=== PATIENT | female | born 1955 | race Caucasian/White ===

== ENCOUNTER → 2019-07-14 14:44 | Outpatient (CLI) | payer OTHER, SELFPAY ==
--- NOTE | ~2019-07-14 | MR_ITS ---
EXAMINATION: MR lumbar spine wo con DATE: 07/14/2019 15:24 INDICATION: Low back pain. TECHNIQUE: Magnetic resonance imaging (MRI) of the lumbar spine was performed without intravenous con trast. Sequences included sagittal T2-weighted FSE, sagittal T2-weighted FS FSE, sagittal T1-weighted FSE, and axial T2-weighted FSE. COMPARISON: Lumbar spine radiographs 11/05/2018 FINDINGS: There is 12 degrees dextroscoliosis of lumbar spine. There are Schmorl's nodes at multiple levels. There is a hemangioma in L1 vertebral body. There is mildly decreased disc height at L1-L2 an d severely decreased disc height at L4-L5. The distal spinal cord signal intensity is normal. The con us medullaris is at L1. There are cysts in the kidneys measuring up to 2.5 cm on the right. The follo wing disc levels are specifically discussed: L1-L2: The disc does not extend beyond the endplate margin. There is mild bilateral facet joint osteo arthritis. There is no neural foraminal stenosis. There is no central canal stenosis. L2-L3: There is a right foraminal protrusion. There is mild bilateral facet joint osteoarthritis. The re is mild right neural foraminal stenosis. There is no central canal stenosis. L3-L4: The disc is bulging. There is mild right and moderate left facet joint osteoarthritis. There i s mild bilateral neural foraminal stenosis. There is mild central canal stenosis. L4-L5: The disc is bulging and has an annular fissure. There is severe bilateral facet joint osteoart hritis. There is mild bilateral neural foraminal stenosis. There is mild central canal stenosis. L5-S1: The disc is bulging and has an annular fissure. There is severe right and moderate left facet joint osteoarthritis. There is mild bilateral neural foraminal stenosis. There is mild central canal stenosis. IMPRESSION: 1. Severe lumbar spondylosis. 2. Lumbar dextroscoliosis. Reviewed, dictated and finalized at location A.
== END ==
PROVIDERS: PCP Family Medicine Adolescent Medicine; Visit Provider Physician Assistant
DX: M47.816 Spondylosis without myelopathy or radiculopathy, lumbar region (principal); M41.9 Scoliosis, unspecified
CPT/HCPCS: 72148

== ENCOUNTER 2020-06-24 11:18 | Emergency (ER) | payer OTHER, SELFPAY ==
--- NOTE | ~2020-06-24 | XR_ITS ---
EXAMINATION: XR knee LT min 4V DATE: 06/24/2020 12:15 INDICATION: Medial left knee pain post fall TECHNIQUE: Anteroposterior, 2 oblique and crosstable lateral views of the left knee were obtained COMPARISON: None. FINDINGS: Alignment is normal. No fracture. No joint effusion/layering lipohemarthrosis. Joint spaces appear r elatively preserved but can be underestimated on nonweightbearing imaging. There are small marginal o steophytes in all 3 compartments of the left knee consistent with at least mild osteoarthritis. Tiny enthesophyte at the patellar insertion of the distal quadriceps tendon. Soft tissues are unremarkable . IMPRESSION: 1. No left knee joint effusion or acute osseous abnormality. 2. At least mild tricompartmental osteoarthritis of the left knee. Reviewed, dictated and finalized at location A. TATION MECHANIC
--- NOTE | ~2020-06-24 | XR_ITS ---
EXAMINATION: XR hand LT min 3V DATE: 06/24/2020 12:13 INDICATION: Pain at the third-fifth metacarpals of the left hand post fall TECHNIQUE: Posteroanterior, oblique and lateral views of the left hand were obtained. COMPARISON: None. FINDINGS: Intra-articular fracture at the palmar/radial aspect of the base of the fifth metacarpal with 1-2 mm palmar/radial displacement. No other fractures identified. Alignment is otherwise normal. Mild polyar ticular osteoarthritis at the first carpometacarpal and multiple predominantly distal interphalangeal joints. IMPRESSION: 1. Small mildly displaced intra-articular fracture at the palmar/radial base of the fifth metacarpal. Reviewed, dictated and finalized at location A. PLAYER
--- NOTE | ~2020-06-24 | XR_ITS ---
XR shoulder LT min 2V DATE: 06/24/2020 12:13 INDICATION: Fall last evening. Pain and limited range of motion TECHNIQUE: 4 views COMPARISON: 05/30/2008 left shoulder FINDINGS: Incidentally noted is diffuse idiopathic skeletal hyperostosis of the thoracic spine. No fracture, dislocation, periosteal reaction or bone destruction or abnormal soft tissue calcificati on of the left shoulder. Normal alignment at the acromioclavicular and glenohumeral joints. IMPRESSION: No fracture or dislocation of left shoulder Diffuse idiopathic skeletal hyperostosis of the thoracic spine Reviewed, dictated and finalized at location A. TER OPERATOR
--- NOTE | ~2020-06-24 | XR_ITS ---
EXAMINATION: XR knee RT min 4V DATE: 06/24/2020 12:15 INDICATION: Lateral right knee pain post fall TECHNIQUE: Anteroposterior, 2 oblique and crosstable lateral views of the right knee were obtained COMPARISON: None. FINDINGS: Alignment is normal. No fracture. No joint effusion/layering lipohemarthrosis. At least mild joint s pace narrowing in the medial and patellofemoral compartments although severity of joint space narrowi ng can be underestimated on nonweightbearing imaging. Moderate-sized marginal osteophytes in all 3 co mpartments of the knee. Small enthesophyte at the proximal pole of the patella. Soft tissues are unre markable. IMPRESSION: 1. Right knee joint effusion or acute osseous abnormality. 2. At least mild tricompartmental osteoarthritis at the right knee which appears slightly more severe than the contralateral left knee. Reviewed, dictated and finalized at location A. O OPERATOR IMPRESSION: 1. Right knee joint effusion or acute osseous abnormality. 2. At least mild tricompartmental osteoarthritis at the right knee which appear s slightly more severe than the contralateral left knee.
[2020-06-24 11:27] VITALS: BP 219/110; PULSE 85; RESP 16; TEMP 36.7; O2SAT 100
[2020-06-24 11:33] VITALS: BP 219/110; PULSE 85; RESP 16; TEMP 36.7; O2SAT 100
--- NOTE | 2020-06-24 11:43 | ED.UPPEXIN ---
HPI - Extremity Injury (Upper) General Chief Complaint: Fall Stated Complaint: fall/lt hand/shoulder and bilateral knees Time Seen by Provider: 06/24/20 11:33 Source: patient and RN notes reviewed Mode of arrival: ambulatory Limitations: no limitations History of Present Illness HPI narrative: Patient presents today complaining of pain to the left arm and bilateral knees status post fall last night in the [place] [employer] parking lot and [place]. States she slipped on the ice in the parking lot and fell onto her hands and knees. Denies numbness or tingling in the extremities. She is not up-to-date on her tetanus vaccine. Reports she is pain-free at rest, but her pain increases to 5/10 with movement. She has been using ice and heat as well as Advil with mild relief. MD complaint: injury to: left and arm Related Data Home Medications Medication Instructions Recorded Confirmed bupropion HCl mg PO 06/24/20 fenofibrate mg 06/24/20 glimepiride mg 06/24/20 levothyroxine [Synthroid] 06/24/20 lisinopril 06/24/20 venlafaxine mg PO 06/24/20 Allergies Allergy/AdvReac Type Severity Reaction Status Date / Time No Known Allergies Allergy Mild Verified 03/09/14 14:58 Review of Systems Review of Systems: Narrative: CONSTITUTIONAL: Denies body aches, fever, chills, or sweats. EYES: Denies visual changes, redness, or discharge. ENT: Denies rhinorrhea, congestion, sore throat, or otalgia. CARDIOVASCULAR: Denies chest pain, palpitations, or edema. RESPIRATORY: Denies cough or dyspnea. GASTROINTESTINAL: Denies abdominal pain, nausea, vomiting, or diarrhea. GENITOURINARY: Denies dysuria or hematuria. SKIN: Denies rash, itching, or wounds. MUSCULOSKELETAL: Denies back pain. + Left shoulder and hand pain, bilateral knee pain NEUROLOGIC: Denies headache, numbness, tingling, or weakness. PSYCH: Denies depression or anxiety. [facility] Past Medical History Medical History (Updated 06/24/20 @ 12:55 by Richa Nelson, RESIDUE FURNACE OPERATOR, ) Ankylosing hyperostosis Anxiety Cardiomegaly Depressive disorder Diabetes Diverticulosis History of benign neoplasm of colon History of dysthymic disorder History of tear of meniscus of knee joint History of umbilical hernia Hx of benign neoplasm of rectum and anal canal Hypertension Hypothyroidism Lumbar radiculopathy Family History Family History (Updated 06/24/20 @ 11:51 by Richa Nelson, RESIDUE FURNACE OPERATOR, ) Other GI malignancy Comments At time of signature, I have reviewed and agree with nursing past medical, surgical, social and family history unless otherwise noted. Please see nursing chart for further information. There is no relevant family history pertinent to the presenting complaint Exam Narrative: Exam Narrative: GENERAL: Well-appearing, over-nourished, and in no acute distress. HEAD: Normocephalic, atraumatic. EYES: EOMI. No redness or drainage. Conjunctivae normal. ENT: Mucous membranes pink and moist. NECK: Normal AROM. CHEST: No respiratory distress. EXTREMITIES: Left hand: Mild swelling and ecchymosis to the dorsum of the hand with tenderness to metacarpals 2 through 5, fifth finger, and distal radius. Small abrasions to the fifth metacarpal. AROM limited due to pain. No snuffbox tenderness. Distal sensation intact. Capillary refill normal. Radial pulse normal. No pain to the remainder of the forearm or elbow. Tenderness to the anterior, posterior, and lateral shoulder joint with pain moderately limiting range of motion in all directions. Patient can raise the arm to 90 degrees, but refuses to internally or externally rotate the arm. Bilateral knees have abrasions and arm mildly swollen. Both knees have some tenderness to the patella in the area just below the patella. Patient has full range of motion of the knees bilaterally with some increased pain. No posterior tenderness bilaterally. Distal sensation intact. Capillary refill normal. Pedal pulses normal bi
[2020-06-24] MEDS: TETANUS,DIPHTHERIA,AC PERTUSSIS ADULT (0.5 ML) BOOSTRIX IM (12:11)
--- NOTE | 2020-06-24 12:17 | PC.NURSE ---
Repeat B/P 150/81
== END 2020-06-24 13:46 | disposition home or self-care (01) ==
PROVIDERS: Emergency Provider Nurse Practitioner; PCP Family Medicine Adolescent Medicine
DX: S80.212A Abrasion, left knee, initial encounter (principal); S80.211A Abrasion, right knee, initial encounter; W00.0XXA Fall on same level due to ice and snow, initial encounter; S62.317A Displaced fracture of base of fifth metacarpal bone, left hand, initial encounter for closed fracture; S46.912A Strain of unspecified muscle, fascia and tendon at shoulder and upper arm level, left arm, initial encounter; Z23 Encounter for immunization; F41.9 Anxiety disorder, unspecified; E11.9 Type 2 diabetes mellitus without complications; I10 Essential (primary) hypertension; E03.9 Hypothyroidism, unspecified; I51.7 Cardiomegaly; F34.1 Dysthymic disorder; M48.10 Ankylosing hyperostosis [Forestier], site unspecified
CPT/HCPCS: 29125; 73030; 73130; 73564; 90471; 90715; 99214; A4565; G0463

== ENCOUNTER 2021-02-14 06:36 | Outpatient (CLI) | payer OTHER, SELFPAY ==
--- NOTE | ~2021-02-14 | MR_ITS ---
EXAMINATION: MR lumbar spine wo con EXAM DATE: 02/14/2021 07:44 INDICATION: Bilateral lumbar radiculopathy. Chronic low back pain. TECHNIQUE: Multi-sequential, multiplanar MR images of the lumbar spine were obtained without contrast . Sagittal T1, T2, T2 fat saturation images. Axial T2 weighted images. Comparison is made to prior examination from 07/14/2019. FINDINGS: There is moderate to severe disc disease at L4-5. Mild to moderate disc disease at the othe r lumbar levels. There is hemangioma within most of the L2 vertebral body. The vertebral bodies are a ligned in the AP dimension. Bilateral renal lesions statistically most likely cysts but incompletely imaged. There is mild lumbar dextroscoliosis. Level by level evaluation: T12-L1: Disc does not extend beyond the endplate margin. Facet arthropathy: Mild. Neural foraminal stenosis: No stenosis. Central canal stenosis: No stenosis. L1-L2: There is a minimal diffuse disc bulge. Facet arthropathy: Mild to moderate. Neural foraminal stenosis: No stenosis. Central canal stenosis: No stenosis. L2-L3: There is a minimal diffuse disc bulge. Facet arthropathy: Mild to moderate. Neural foraminal stenosis: Mild right. Central canal stenosis: No stenosis. L3-L4: There is a mild to moderate diffuse disc bulge. Facet arthropathy: Moderate . Ligamentum flavum enlargement. Neural foraminal stenosis: Mild to moderate left, mild right. Central canal stenosis: Mild. L4-L5: There is a moderate diffuse disc bulge. Facet arthropathy: Moderate to severe . Ligamentum flavum enlargement. Neural foraminal stenosis: Moderate bilateral. Central canal stenosis: Moderate. L5-S1: There is a mild to moderate diffuse disc bulge. Facet arthropathy: Moderate to severe right, mild to moderate left. Neural foraminal stenosis: Moderate to severe right, mild left. Central canal stenosis: Mild. Difficult appreciate any significant interval change in these findings compared to last year. IMPRESSION: 1. L5-S1 moderate to severe right neural foraminal stenosis. 2. Moderate spondylosis L4-5. Reviewed, dictated and finalized at location D.
== END 2021-02-14 06:37 | disposition home or self-care (01) ==
PROVIDERS: PCP Family Medicine Adolescent Medicine; Visit Provider Family Medicine Adolescent Medicine
DX: M54.16 Radiculopathy, lumbar region (principal); M48.07 Spinal stenosis, lumbosacral region; M47.816 Spondylosis without myelopathy or radiculopathy, lumbar region
CPT/HCPCS: 72148

== ENCOUNTER 2023-03-31 00:57 | Day surgery (SDC) | payer MEDICARE, OTHER, SELFPAY ==
[2023-02-25 11:24] VITALS: BMI 38.7
--- NOTE | 2023-03-15 08:45 | SUR.PREOP ---
Spoke with patient and verified new date and time of her procedure that had been rescheduled. The only update to her medical hx was that she tested positive for Covid-19 at the very beginning of 2022.
--- NOTE | 2023-03-29 10:18 | SUR.PREOP ---
Patient called regarding upcoming procedure. Reviewed preop instructions, appointment times, and procedure prep.
[2023-03-31 06:20] VITALS: BP 211/108; PULSE 80; RESP 18; TEMP 35.8; O2SAT 98
[2023-03-31 06:20] LABS: Glucose Point of Care 210 mg/dl (65-105)
[2023-03-31] MEDS: LACTATED RINGERS 1,000 ML 150 ML IV CONT (06:23)
--- NOTE | 2023-03-31 07:23 | WPDANESEPPF ---
Anes - Initial Pre Proc Eval Procedure: Operation Date: 03/31/23 07:30 Proposed Procedures p Colonoscopy - Vidal Cochran MD Date/Time: 03/31/23 07:23 Surgeon: Vidal Cochran MD Pre Op Diagnosis: change in bowel habit Patient Data Age: 67 Gender: F Height: 1.78 m Weight: 120.2 kg Last Vital Signs Temp 96.4 F L 03/31/23 06:20 Pulse 80 03/31/23 06:20 Resp 18 03/31/23 06:20 BP 211/108 H 03/31/23 06:20 Pulse Ox 98 03/31/23 06:20 O2 Del Method Room Air 03/31/23 06:20 Allergies Allergy/AdvReac Type Severity Reaction Status Date / Time No Known Allergies Allergy Mild Verified 03/31/23 06:19 Home Medications Medication Instructions Recorded Confirmed Type levothyroxine 175 mcg tablet 175 mcg PO DAILY #90 tabs 09/18/21 03/31/23 Rx (Synthroid) lisinopril 40 mg tablet 40 mg PO DAILY #90 tabs 09/29/21 03/31/23 Rx multivitamin 1 tablet PO DAILY 02/10/23 03/31/23 History insulin detemir U-100 100 unit/mL 75 unit (0.75 mL) subcut DAILY #75 03/18/23 03/31/23 Rx (3 mL) subcutaneous pen (Levemir mL FlexPen) Laboratory Tests 03/31/23 06:17 POC Capillary Glucose 210 H mg/dl (65-105) Patient hx anesthesia problems: none Family hx anesthesia problems: none Results Review: All pre-operative results and documents have been reviewed as part of the pre-operative evaluation. [facility] Past Medical History Medical History Ankylosing hyperostosis Anxiety Cardiomegaly Depressive disorder Diabetes Diverticulosis Hypertension Hypothyroidism Surgical History Surgical History History of arthroscopy of right knee 2014 History of cholecystectomy 1987 History of tonsillectomy and adenoidectomy History of umbilical hernia repair 2007 Family History Family History (Updated 09/22/21 @ 14:31 by Tamie Quinn MA) Mother Lung cancer Ovarian ca Grandparent Diabetes mellitus Other Acute myocardial infarction Alzheimer disease Dementia GI malignancy Social History Social History (Updated 09/22/21 @ 14:32 by Tamie Quinn MA) Smoking status: Former smoker Smoking end date: 05/03/89 Alcohol intake: never Substance use: never Substance use type: does not use Living arrangements: with family Occupation/Education: occupation Gender identity (if verbalized by the patient): Female Sexual Orientation (if Verbalized by the Patient): Straight or Heterosexual Spiritual care concerns: No Agree to blood products: Yes Anes - Eval Final PreProcedure Day of Procedure 03/31/23 07:23 Patient weight: obese Heart: regular rate and rhythm Lungs: clear to auscultation Airway: Mallampati scale class III Neurological: alert and oriented Last oral intake: >/= 8 hours ASA classification: III Emergent: no Anesthetic plan: proceed Anesthesia type and monitoring: general GIVS and standard monitoring Results Review: All pre-operative results and documents have been reviewed as part of the pre-operative evaluation. Informed Consent: The patient's anesthetic plan and its attendant risks and benefits were discussed with the patient/family/POA. Questions were solicited and answers provided to the satisfaction of the patient/family/POA.
--- NOTE | 2023-03-31 07:30 | PM.HPGS ---
History of Present Illness History of Present Illness Consent: Risks, benefits, and alternatives have been discussed and questions answered. Patient agrees to proceed with procedure. Chief complaint: change in bowel habit Narrative: Elma Siu is a 67 year old female with change in bowel habits, last colonoscopy 2013. Mother and grandparent had colon cancer. Review of Systems Constitutional: Constitutional: Denies headache(s) and Denies weakness Eyes: Eyes: Denies blurry vision ENT: Reports Normal hearing present, Denies headache(s) and Denies neck pain Cardiovascular: Cardiovascular: Denies chest pain and Denies dyspnea Respiratory: Respiratory: Denies dyspnea Gastrointestinal: Gastrointestinal: Reports no additional gastrointestinal complaints Genitourinary: Genitourinary: Denies dysuria Musculoskeletal: Musculoskeletal: Denies neck pain Integumentary/Breasts: Skin/Breast: Denies dry skin Neurologic: Reports Normal hearing present, Denies headache(s) and Denies weakness Psychiatric: Psychiatric: Denies anxiety Endocrine: Endocrine: Denies change in body appearance Hematologic/Lymphatic: Hematologic/Lymphatic: Denies easy bleeding Allergic/Immunologic: Allergic/Immunologic: Denies urticaria PMFSH Past Medical History Medical History (Updated 03/31/23 @ 07:31 by Vidal Cochran MD) Ankylosing hyperostosis Anxiety Cardiomegaly Depressive disorder Diabetes Diverticulosis Family history of colon cancer Hypertension Hypothyroidism Surgical History Surgical History History of arthroscopy of right knee 2014 History of cholecystectomy 1987 History of tonsillectomy and adenoidectomy History of umbilical hernia repair 2007 Family History Family History (Updated 09/22/21 @ 14:31 by Tamie Quinn MA) Mother Lung cancer Ovarian ca Grandparent Diabetes mellitus Other Acute myocardial infarction Alzheimer disease Dementia GI malignancy Social History Social History (Updated 09/22/21 @ 14:32 by Tamie Quinn MA) Smoking status: Former smoker Smoking end date: 05/03/89 Alcohol intake: never Substance use: never Substance use type: does not use Living arrangements: with family Occupation/Education: occupation Gender identity (if verbalized by the patient): Female Sexual Orientation (if Verbalized by the Patient): Straight or Heterosexual Spiritual care concerns: No Agree to blood products: Yes Meds Home Medications and Allergies Home Medications Medication Instructions Recorded Confirmed Type levothyroxine 175 mcg tablet 175 mcg PO DAILY #90 tabs 09/18/21 03/31/23 Rx (Synthroid) lisinopril 40 mg tablet 40 mg PO DAILY #90 tabs 09/29/21 03/31/23 Rx multivitamin 1 tablet PO DAILY 02/10/23 03/31/23 History insulin detemir U-100 100 unit/mL 75 unit (0.75 mL) subcut DAILY #75 03/18/23 03/31/23 Rx (3 mL) subcutaneous pen (Levemir mL FlexPen) Allergies Allergy/AdvReac Type Severity Reaction Status Date / Time No Known Allergies Allergy Mild Verified 03/31/23 06:19 Vital Signs Vital Signs - 24 hr 03/31/23 06:20 Temperature 96.4 F L Pulse Rate 80 Respiratory Rate 18 Blood Pressure 211/108 H Pulse Oximetry 98 Oxygen Delivery Room Air Exam Const: General: comfortable and no acute distress HENMT: Face/Nose/Sinus: Normal nares present Eyes: General: appearance normal, both eyes and all related structures Neck: Neck: no JVD Resp: Auscultation: clear to auscultation bilaterally Cardio: Rate: regular rate Rhythm: regular rhythm GI: Inspection: non-distended GI Palp: Yes Soft to palpation Skin: General skin exam: normal color Neuro: General: gait normal Speech: normal speech Extrem: General: normal to inspection Psych: Mental Status: mental status grossly normal Assessment and Plan Assessment and plan (1) Change
[2023-03-31 07:50] VITALS: BP 147/82; PULSE 76; RESP 18; O2SAT 98
[2023-03-31 08:00] VITALS: BP 168/80; PULSE 76; RESP 18; O2SAT 96
[2023-03-31 08:10] VITALS: BP 179/80; PULSE 76; RESP 18; O2SAT 96
[2023-03-31 08:16] LABS: Glucose Point of Care 222 mg/dl (65-105)
== END 2023-03-31 08:21 | disposition home or self-care (01) ==
PROVIDERS: PCP Family Medicine Adolescent Medicine; Visit Provider Internal Medicine Gastroenterology
PROC: 0DJD8ZZ Inspection of Lower Intestinal Tract, Via Natural or Artificial Opening Endoscopic (ICD-10-PCS; CPT 45378; principal; 2023-03-31 07:30)
DX: R19.4 Change in bowel habit (principal); K63.5 Polyp of colon; D12.5 Benign neoplasm of sigmoid colon; K62.1 Rectal polyp; K57.30 Diverticulosis of large intestine without perforation or abscess without bleeding; I10 Essential (primary) hypertension; F41.9 Anxiety disorder, unspecified; E03.9 Hypothyroidism, unspecified; F32.A Depression, unspecified; E11.9 Type 2 diabetes mellitus without complications; Z79.4 Long term (current) use of insulin; Z90.49 Acquired absence of other specified parts of digestive tract; Z87.891 Personal history of nicotine dependence; Z87.39 Personal history of other diseases of the musculoskeletal system and connective tissue; Z80.0 Family history of malignant neoplasm of digestive organs; Z80.41 Family history of malignant neoplasm of ovary; Z82.49 Family history of ischemic heart disease and other diseases of the circulatory system; E66.9 Obesity, unspecified; Z68.38 Body mass index [BMI] 38.0-38.9, adult
CPT/HCPCS: 45385; 45380; 82948; 88305; J2704; J7120